=== PATIENT | male | born 1950 | race Caucasian/White ===

== ENCOUNTER 2018-07-29 09:15 | Outpatient (CLI) | payer MEDICARE ==
[~2018-07-29 09:15] MED LIST: Iopamidol 370 76% 100 ML VIAL ONE
--- NOTE | 2018-07-29 11:06 | CT ---
CT HEAD WITH AND WITHOUT CONTRAST: Date: 07/29/18 INDICATION: Essential tremor. No prior comparison. FINDINGS: There is age-appropriate size of the ventricular system. Mild chronic ischemic disease of the cerebra l white matter. There is no acute intracranial hemorrhage, mass effect, or midline shift. No patholog ic intra-axial enhancement. IMPRESSION: 1. Mild chronic ischemic disease of cerebral white matter. 2. No acute intracranial hemorrhage or mass effect. POS: ROLAND
== END 2018-07-29 09:16 | disposition home or self-care (01) ==
LOC: SCSCT 09:15
PROVIDERS: ATTEND Nurse Practitioner Acute Care
DX: G25.0 Essential tremor (principal); R90.82 White matter disease, unspecified; I67.82 Cerebral ischemia
CPT/HCPCS: 70470

== ENCOUNTER 2019-01-12 14:05 | Outpatient (CLI) | payer MEDICARE ==
--- NOTE | 2019-01-12 15:08 | RAD ---
LEFT SHOULDER 3 VIEWS: Date: 01/12/19 HISTORY: Left shoulder pain. FINDINGS/IMPRESSION: There are degenerative changes in the acromioclavicular joint. No fracture, dislocation, or bony dest ruction is seen. POS: C
== END 2019-01-12 14:06 | disposition home or self-care (01) ==
LOC: SCSRAD 14:05
PROVIDERS: ATTEND Family Medicine
DX: S46.012D Strain of muscle(s) and tendon(s) of the rotator cuff of left shoulder, subsequent encounter (principal); M19.012 Primary osteoarthritis, left shoulder

== ENCOUNTER 2019-06-13 08:01 | Outpatient (CLI) | payer MEDICARE ==
[2019-06-13] MEDS ORDERED: Iopamidol 300 61% 30 ML VIAL ONE (08:05)
[2019-06-13] MEDS ORDERED: EPINEPHrine 1 MG/ML AMP ONE (08:05)
[2019-06-13] MEDS ORDERED: Lidocaine 1% PF 5 ML VIAL ONE (08:05)
--- NOTE | 2019-06-13 11:03 | CT ---
CT Upper Ext Lt W Con History: M 24.812 internal derangement of left shoulder Comparison: Arthrogram same day. Shoulder radiograph January 12, 2019 Findings: Biceps tendon: Intra-articular biceps tendon is intact without rupture. Labrum: Free edge blunting of the superior labrum extending into the posterior superior labrum. Cartilage: No full-thickness cartilage defect. Rotator cuff: No full-thickness perforation. Footprint appears to be intact. No significant articular surface partial tearing. Bones: Moderate degenerative disease of the acromioclavicular joint. Normal glenoid version. 3 mm nod ule superior segment left lower lobe. Muscles: No significant atrophy. Incomplete evaluation of cardiac device. Impression: 1. No full-thickness rotator cuff tear. No significant undersurface partial tearing. 2. Mild blunting and free edge fraying of the superior labrum extending to the posterior superior lab rum without displaced labral tissue. 3. 3 mm pulmonary nodule superior segment left lower lobe. 4. Normal glenoid version. 5. Intact intra-articular biceps tendon.
--- NOTE | 2019-06-13 11:06 | RAD ---
XR Shoulder Lt Arthrogram History: Internal derangement of left shoulder M 24.812 Comparison: Shoulder radiograph January 12, 2019 Findings: Patient was brought to the fluoroscopy suite. All questions were answered. Informed consent was obtained. Timeout performed. The patient's left shoulder was prepped and draped in normal sterile fashion. 3 mL of lidocaine was i nstilled into the superficial and deep soft tissues. Using fluoroscopic guidance and a 22-gauge needle, a total of 10 mL contrast was instilled into the h umeral joint. The patient tolerated the procedure well without complication. Impression: Technically successful fluoroscopic guided left shoulder arthrogram for CT. Fluoroscopy time: 0.2 minutes
== END 2019-06-13 08:02 | disposition home or self-care (01) ==
LOC: RAD 08:01
PROVIDERS: ATTEND Pediatrics Sports Medicine
DX: M24.812 Other specific joint derangements of left shoulder, not elsewhere classified (principal); R91.1 Solitary pulmonary nodule
CPT/HCPCS: 23350; J0171; J2001; Q9967

== ENCOUNTER 2019-06-21 12:35 | Outpatient (CLI) | payer MEDICARE ==
--- NOTE | 2019-06-21 14:51 | CT ---
CT CHEST NONCONTRAST: Date: 06/21/19 HISTORY: Lung nodule. Abnormal CT. FINDINGS: Lungs are well inflated. The 0.3 cm ground-glass subpleural nodule in the superior segment of left lo wer lobe is again demonstrated. Additional tiny nonspecific smaller nodules are also present bilatera lly. No aggressive lesions are apparent. No pleural fluid or lobar consolidation. Airway is patent. Lack of contrast limits evaluation of the soft tissues. Left subclavian cardiac electronic device in place. No bulky mediastinal adenopathy. Degenerative changes thoracic spine. IMPRESSION: The 3 mm subpleural ground-glass nodule superior segment left lower lobe is stable. Suggest routine c hest screening. Specific follow-up regarding this nodule is not required. POS: TPC
== END 2019-06-21 12:36 | disposition home or self-care (01) ==
LOC: SCSCT 12:35
PROVIDERS: ATTEND Family Medicine
DX: R91.1 Solitary pulmonary nodule (principal)
CPT/HCPCS: 71250

== ENCOUNTER 2019-07-19 15:27 | Inpatient (IN) | payer MEDICARE ==
--- NOTE | 2019-07-19 15:45 | CT ---
EXAM: Brain CT scan Without contrast: HISTORY: Stroke alert, bilateral leg weakness altered mental status COMPARISON: 07/29/2018 FINDINGS: Atrophy and chronic white matter ischemic change. No focal mass or midline shift. No intra or extra-axial hemorrhage. The visualized sinuses and mastoids are clear of acute process. IMPRESSION: No mass or bleed or other significant acute intracranial process. Findings discussed with Dr Verdugo at 3:40 PM CODE CR
[2019-07-19 15:47] LABS: #Basophils 0.1 thou/uL (0.0-0.2); #Eosinphils 0.6 thou/uL (0.0-0.7); #Lymphocytes 1.3 thou/uL (1.20-3.40); #Monocytes 0.7 thou/uL (0.11-0.59); #Neutrophils 7.2 thou/uL (1.40-6.50); %Basophils 0.7 % (0.0-1.0); %Lymphocytes 13.2 % (21.0-51.0); %Monocytes 6.8 % (0.0-10.0); %Neutrophils 73.4 % (42.0-75.0); Hemoglobin 16.3 g/dL (14.0-18.0); Mean Corpuscular HGB CONC 34.3 g/dL (32.0-36.0); Mean Corpuscular Hemoglobin 33.3 pg (27.0-31.0); Mean Platelet Volume 8.3 fL (7.4-10.4); Platelet Count 217 thou/uL (130-400); RBC Distribution Width 11.7 % (11.5-14.5); Red Blood Cell (RBC) Count 4.91 mill/uL (4.70-6.10); White Blood Cell (WBC) Count 9.8 thou/uL (4.8-10.8)
[2019-07-19 15:52] LABS: PTT 32.8 SEC (22.9-36.1)
[2019-07-19 15:54] LABS: INR-International Normal Ratio 1.3
[2019-07-19 16:01] LABS: ALT (SGPT) 18 U/L (8-55); AST (SGOT) 18 U/L (5-34); Albumin 4.3 g/dL (3.4-4.8); Alkaline Phosphatase 64 U/L (40-110); Anion Gap 16 mmol/L (10-20); BUN (Urea Nitrogen) 18 mg/dL (8.4-25.7); Bilirubin, Total 0.5 mg/dL (0.2-1.2); Calc. Creatinine Clearance 0 mL/min (70-130); Calcium 9.7 mg/dL (7.8-10.44); Carbon Dioxide 20 mmol/L (23-31); Chloride 107 mmol/L (98-107); Estimated GFR-MDRD 57; Globulin 2.4 g/dL (2.4-3.5); Glucose 163 mg/dL (80-115); Potassium 4.3 mmol/L (3.5-5.1); Protein, Total 6.7 g/dL (5.8-8.1); Sodium 139 mmol/L (136-145)
--- NOTE | 2019-07-19 16:19 | RAD ---
SINGLE VIEW OF THE CHEST: 07/19/19 COMPARISON: 01/01/06 HISTORY: Possible CVA with altered mental status. FINDINGS: Single view of the chest shows normal sized cardiomediastinal silhouette. There is a pacemaker that i s unchanged in position. A cardiac monitoring device projects over the left chest wall. There is no e vidence of consolidation, mass, or pleural effusion. Degenerative changes are seen in the spine. IMPRESSION: No evidence of acute cardiopulmonary disease. POS: TPC
[2019-07-19] MEDS ORDERED: Diltiazem HCl 125 MG, Admixture Fee 1 EACH in Sodium Chloride 0.9% 100 ML IVPB SCH (17:45)
[2019-07-19 18:16] LABS: Bacteria/HPF None Seen HPF (None Seen); Bilirubin Negative (Negative); Blood, Urine Negative (Negative); Clarity Clear (Clear); Glucose, Urine (Dipstick) Normal (Negative); Leukocyte Negative Leu/uL (Negative); Nitrite Negative (Negative); Protein, Urine (Dipstick) 30 mg/dL (Neg-Trace); RBC/HPF 0-3 HPF (0-3); Squamous Epithelial 0-3 HPF (0-3); WBC/HPF 0-3 HPF (0-3)
[2019-07-19 18:28] LABS: Mucous/LPF 2+ LPF (<2+)
[2019-07-19 18:29] LABS: Calcium Oxalate Crystals 2+ HPF (None Seen)
[2019-07-19 18:52] VITALS: BMI 26.8
[2019-07-19] MEDS ORDERED: Ondansetron PF 4 MG/2 ML Vial IVP PRN (18:52)
[2019-07-19] MEDS ORDERED: Ondansetron ODT 4 MG TAB SL PRN (18:52)
[2019-07-19 19:25] LABS: Troponin I 0.017 ng/mL (< 0.028)
[2019-07-19] MEDS ORDERED: Aspirin 325 MG TAB PO SCH (19:30)
[2019-07-19] MEDS ORDERED: Metoprolol Tartrate 25 MG TAB PO SCH (19:30)
[2019-07-19] MEDS ORDERED: Acetaminophen 325 MG TAB PO PRN (19:40)
[2019-07-19] MEDS ORDERED: HumaLOG 300 UNITS/3 ML VIAL SC PRN (19:41)
[2019-07-19] MEDS ORDERED: Dextrose 5% in Water 1,000 ML IV PRN (19:41)
[2019-07-19] MEDS ORDERED: Dextrose 50% Abboject 50 ML SYRINGE SLOW IVP PRN (19:41)
[2019-07-19 20:01] LABS: Digoxin 1.18 ng/mL (0.8-2.0)
[2019-07-19] MEDS: Apixaban 5 MG TAB PO SCH (20:27)
[2019-07-19] MEDS ORDERED: Topiramate 25 MG TAB PO SCH (21:00)
[2019-07-19 22:30] LABS: Troponin I 0.011 ng/mL (< 0.028)
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
--- NOTE | 2019-07-20 08:15 | ULT ---
CAROTID ARTERIAL DOPPLER ULTRASOUND: DATE: 07/20/2019. COMPARISON: None. HISTORY: Altered mental status, change in ischemic attack. TECHNIQUE: Multiplanar grayscale sonographic imaging of the arterial structures of the neck obtained with color flow and spectral analysis. FINDINGS: There is scattered atherosclerotic plaque within the distal left CCA as well as the bilateral proxima l ICA and ECA. Antegrade blood flow and normal arterial waveforms are documented within the carotid and the vertebra l system bilaterally. VESSEL PEAK SYSTOLIC VELOCITY (CM/S) Right CCA 109 Right ICA 72 Right ECA 90 Left CCA 101 Left ICA 72 Left ECA 58 IC/CC ratio is 0.8 the right and 0.7 on the left. IMPRESSION: No hemodynamically significant stenosis on the basis of sonographic velocity criteria. Transcribed Date/Time: 07/20/2019 8:27 AM
[2019-07-20] MEDS ORDERED: Escitalopram Oxalate 10 mg Tablet PO SCH (09:00)
[2019-07-20] MEDS ORDERED: Alogliptin 25 MG TAB PO SCH (09:00)
[2019-07-20] MEDS ORDERED: Digoxin 0.25 MG TAB PO SCH (09:00)
[2019-07-20] MEDS: metFORMIN 500 MG TAB PO SCH ×2 (09:08→16:44)
[2019-07-20] MEDS: Apixaban 5 MG TAB PO SCH (09:09)
--- NOTE | 2019-07-20 10:02 | PDOC.HOSPP ---
- Subjective Subjective: Feels well. Didn't get much sleep. - Objective Vital Signs & Weight: Vital Signs (12 hours) Temp Pulse Resp BP Pulse Ox 07/20/19 09:09 76 07/20/19 09:04 97.9 F 88 14 132/73 98 07/20/19 07:10 95 07/20/19 04:00 97.8 F 74 18 106/70 96 07/20/19 00:00 98.1 F 84 18 112/66 97 Weight Weight 181 lb 6.4 oz I&O: 07/19/19 07/20/19 07/21/19 06:59 06:59 06:59 Intake Total 300 Balance 300 Result Diagrams: 07/19/19 15:35 07/19/19 15:38 Additional Labs: Accuchecks 07/20/19 07/19/19 05:56 20:29 POC Glucose 105 109 Hospitalist ROS - Medication Medications: Active Medications Generic Name Dose Route Start Last Admin Trade Name Freq PRN Reason Stop Dose Admin Acetaminophen 650 mg 07/19/19 19:40 07/19/19 20:41 Tylenol PO 650 mg Q4H PRN Administration Headache/Fever/Mild Pain (1-3) Alogliptin Benzoate 25 mg 07/20/19 09:00 07/20/19 09:08 Alogliptin PO 25 mg DAILY RACHAEL Administration Apixaban 5 mg 07/19/19 21:00 07/20/19 09:09 Eliquis PO 5 mg BID RACHAEL Administration Escitalopram Oxalate 10 mg 07/20/19 09:00 07/20/19 09:09 Lexapro PO 10 mg DAILY RACHAEL Administration Metformin HCl 1,000 mg 07/20/19 08:00 07/20/19 09:08 Glucophage PO 1,000 mg BID-WM RACHAEL Administration Topiramate 25 mg 07/19/19 21:00 07/19/19 20:26 Topamax PO 25 mg HS RACHAEL Administration - Exam Heart: no murmur, no gallops, no rubs, normal peripheral pulses, irregular Respiratory: CTAB, no wheezes, no rales, no ronchi, normal chest expansion, no tachypnea, normal percussion Gastrointestinal: soft, non-tender, non-distended, normal bowel sounds, no palpable masses, no hepatomegaly, no splenomegaly, no bruit Skin: normal turgor, no lesions, no rashes Neurological: no focal deficits Musculoskeletal: normal tone Psychiatric: normal affect, normal behavior, A&O x 3 Hosp A/P (1) Encephalopathy Code(s): G93.40 - ENCEPHALOPATHY, UNSPECIFIED Status: Acute (2) Atrial fibrillation with rapid ventricular response Code(s): I48.91 - UNSPECIFIED ATRIAL FIBRILLATION Status: Acute (3) History of seizure Code(s): Z87.898 - PERSONAL HISTORY OF OTHER SPECIFIED CONDITIONS Status: Acute (4) Benign essential tremor Code(s): G25.0 - ESSENTIAL TREMOR Status: Acute (5) Diabetes mellitus Code(s): E11.9 - TYPE 2 DIABETES MELLITUS WITHOUT COMPLICATIONS Status: Acute (6) History of depression Code(s): Z86.59 - PERSONAL HISTORY OF OTHER MENTAL AND BEHAVIORAL DISORDERS Status: Acute - Plan Looks good. He thinks the encephalopathy may have been purely related to the stress of the event. HR is controlled. Saw Dr. Worley this morning. PPM interrogation pending. MACIEL otherwise negative. Ambulate as tolerated.
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
[2019-07-20 15:16] VITALS: BP 113/85; TEMP 98
--- NOTE | 2019-07-20 22:11 | CON ---
DATE OF CONSULTATION: 07/20/2019 CONSULT PHYSICIAN: Hospitalist Service. HISTORY OF PRESENT ILLNESS: Mr. Jenkins has been a patient in the neuro clinic for treatment of tremors. He was at his workforce planner's office having his cat put down. Apparently, the procedure did not go well. When he became emotionally distraught, he went into somewhat of a catatonic state, but was able to respond to his daughter and the left the veterinary clinic on his own. While sitting in the car, he told his daughter that he thought he ought to come to the hospital. They came around and had him admitted. He had a CT of the brain done, which showed some small vessel changes. No acute changes were noted. Carotid ultrasound was cleared. His lab work was all unremarkable. His vital signs have been stable and he is afebrile. He has a pacemaker in place, so MRI was not done. He is anticoagulated with Eliquis. On exam at this point, he is alert and appropriate. His speech is fluent and clear. He has no focal deficits. He has some mild postural tremor. I think that he had an emotional breakdown with a bit of a catatonic state. He has done this in the past under stress. I do not see any need for change in medications. Job ID: [id number]
[2019-07-21] MEDS ORDERED: Bupropion 150 MG XL TAB PO SCH (09:00)
[2019-07-21] MEDS ORDERED: Alogliptin 25 MG TAB PO SCH (09:00)
[2019-07-21] MEDS ORDERED: Non-Formulary Item 1 EACH (Bupropion Hcl [Bupropion Hcl Xl] 300 MG) PO SCH (09:00)
[2019-07-21] MEDS ORDERED: Primidone 250 MG TAB PO SCH (09:00)
[2019-07-21] MEDS ORDERED: Digoxin 0.25 MG TAB PO SCH (09:00)
--- NOTE | 2019-07-21 13:50 | DIS ---
DATE OF ADMISSION: 07/19/2019 DATE OF DISCHARGE: 07/20/2019 DISCHARGE DIAGNOSES: 1. Acute encephalopathy. 2. Atrial fibrillation with rapid ventricular response. 3. History of isolated seizure. 4. Diabetes mellitus. 5. Anorexia, likely secondary to medication. 6. Hyperlipidemia. 7. History of anxiety/depression. 8. History of benign tremor. HISTORY OF PRESENT ILLNESS: This patient is a 68-year-old male who was at the sebd teacher with his daughter who had to have her pet cat put down. 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 The patient was in the waiting area and became a bit less responsive, but appeared to recover. They got in the car to drive home and he became even less responsive. They subsequently brought him directly to the emergency department. A code stroke was called and the patient was being taken to the CT scanner when he finally came back to himself. The patient was never unconscious during this time. He only remembered being in the veterinary office and being here on his way to the CT scan. He had a negative CT, negative chest x-ray and his labs were otherwise unremarkable. He had a blood sugar of 163, no evidence of hypoglycemia. Troponins were negative. HOSPITAL COURSE: The patient was placed in observation for altered mental status. His prolactin level returned normal. TSH was normal. He was maintained on telemetry, which showed persistent atrial fibrillation. He had a pacemaker interrogation, which showed no significant functioning. He was seen in consultation by his lead software tester, Dr. Worley. He did not feel the patient had arrhythmia related challenges. He was also seen in consultation by Dr. Lorenz who felt the patient had an emotional breakdown with a bit of a catatonic state and we all were comfortable with the patient being discharged to home. He did have carotid Dopplers performed, which showed no hemodynamically significant stenosis. PHYSICAL EXAMINATION: VITAL SIGNS: On the day of admission, temperature was 98.0, pulse 93, respirations 12, O2 saturations 99% on room air, BP is 113/85. GENERAL APPEARANCE: Age-appropriate male in no distress. Awake, alert, oriented, pleasant, and cooperative. HEART: Irregular without murmurs. LUNGS: Clear to auscultation bilaterally. ABDOMEN: Soft, nontender, and nondistended. EXTREMITIES: No cyanosis, clubbing, or edema. DISPOSITION: The patient is discharged home. ACTIVITY: As tolerated. DIET: Diabetic heart healthy diet. DISCHARGE MEDICATIONS: He will continue his usual home medications includin. Metformin. 2. Lisinopril. 3. Insulin. 4. Gabapentin. 5. Topiramate. 6. Simvastatin. 7. Primidone. 8. Sitagliptin. 9. Digoxin. 10. Bupropion. 11. Eliquis. 12. Lexapro. The patient was counseled that his anorexia over the past 6 months with 20 pounds weight loss may be related to the topiramate. FOLLOWUP: He is encouraged to follow up with Neurology as an outpatient to consider alternative medications. He is to follow up with Dr. Patric Tobin in 7 days and he can return to the hospital at any time he feels the need to do so. Job ID: [id number]
== END 2019-07-20 17:36 | disposition home or self-care (01) | DRG 92 ==
LOC: ERS 15:27 → 2SE 18:39
PROVIDERS: ADMIT Internal Medicine; ATTEND Internal Medicine
DX: G25.0 Essential tremor (principal); G93.49 Other encephalopathy; E11.9 Type 2 diabetes mellitus without complications; E78.00 Pure hypercholesterolemia, unspecified; I10 Essential (primary) hypertension; I48.2 Chronic atrial fibrillation; E78.5 Hyperlipidemia, unspecified; F41.9 Anxiety disorder, unspecified; G25.2 Other specified forms of tremor; R63.0 Anorexia; G40.909 Epilepsy, unspecified, not intractable, without status epilepticus; Z79.01 Long term (current) use of anticoagulants; Z95.0 Presence of cardiac pacemaker; Z88.2 Allergy status to sulfonamides
CPT/HCPCS: 36415; 36416; 70450; 71045; 80053; 80162; 81003; 81015; 82550; 84146; 84443; 84484; 85025; 85610; 85730; 87086; 93005; 93880; J3490

== ENCOUNTER 2020-08-15 08:12 | Outpatient (CLI) | payer MEDICARE ==
--- NOTE | 2020-08-15 09:18 | CT ---
CT chest noncontrast HISTORY: Lung nodule. Follow-up. COMPARISON: 06/21/2019. FINDINGS: Lungs are well-inflated. The 0.3 cm noncalcified nodule near the pleura at the posterior as pect of the left lower lobe, likely in the superior segment, is unchanged in appearance. Now better demonstrated at the right posterior medial lung base is a subpleural 0.6 x 0.5 cm nodule that is also stable compared to the previous exam. No pleural fluid or pneumothorax. No consolidation. Calcified granulomata are consistent with healed granulomatous disease. Left subclavian cardiac elect ronic device is in place. There is calcification in the coronary arteries. Lack of contrast limits evaluation of the soft tissues. No mediastinal adenopathy evident. IMPRESSION : Stable CT appearance of small bilateral subpleural nodules. No new abnormalities. Atherosclerosis.
== END 2020-08-15 08:13 | disposition home or self-care (01) ==
LOC: BICCT 08:12
PROVIDERS: ATTEND Internal Medicine
DX: R91.8 Other nonspecific abnormal finding of lung field (principal); I70.90 Unspecified atherosclerosis
CPT/HCPCS: 71250

== ENCOUNTER 2024-04-20 09:04 | Emergency (ER) | payer MEDICARE ==
[2024-04-20] MEDS ORDERED: Lorazepam 2 MG/ML VIAL ONE (09:13)
[2024-04-20 10:02] LABS: ALT (SGPT) 17 U/L (8-55); AST (SGOT) 18 U/L (5-34); Albumin 3.3 g/dL (3.4-4.8); Alkaline Phosphatase 92 U/L (40-110); Anion Gap 15 mmol/L (10-20); BUN (Urea Nitrogen) 10 mg/dL (8.4-25.7); Bilirubin, Total 0.7 mg/dL (0.2-1.2); Calc. Creatinine Clearance 0 mL/min (70-130); Calcium 8.4 mg/dL (7.8-10.44); Carbon Dioxide 18 mmol/L (23-31); Chloride 112 mmol/L (98-107); Estimated GFR 91; Globulin 2.9 g/dL (2.4-3.5); Glucose 149 mg/dL (83-110); Lipase 53 U/L (8-78); Magnesium 1.6 mg/dL (1.6-2.6); Potassium 3.5 mmol/L (3.5-5.1); Protein, Total 6.2 g/dL (5.8-8.1); Sodium 141 mmol/L (136-145)
[2024-04-20 10:10] LABS: Troponin I 0.018 ng/mL (< 0.028)
[2024-04-20 10:11] LABS: #Basophils 0.05 10x3/uL (0.0-0.2); %Basophils 0.8 % (0.0-1.0); %Eosinophils 7.2 % (0.0-10.0); %Lymphocytes 23.7 % (21.0-51.0); %Monocytes 8.4 % (0.0-10.0); Hematocrit 42.1 % (42.0-52.0); Hemoglobin 14.4 g/dL (14.0-18.0); Mean Corpuscular HGB CONC 34.2 g/dL (32.0-36.0); Mean Corpuscular Hemoglobin 31.1 pg (27.0-31.0); Mean Corpuscular Volume 90.9 fL (78.0-98.0); Mean Platelet Volume 10.6 fL (7.4-10.4); Platelet Count 189 10x3/uL (130-400); RBC Distribution Width 13.3 % (11.5-14.5); Red Blood Cell (RBC) Count 4.63 mill/uL (4.70-6.10)
[2024-04-20 10:24] LABS: INR-International Normal Ratio 1.1; Prothrombin Time 13.7 sec (12.0-14.7)
[2024-04-20 10:25] LABS: PTT 28.1 sec (22.9-36.1)
[2024-04-20 10:32] LABS: Bacteria/HPF None Seen HPF (None Seen); Bilirubin Negative (Negative); Blood, Urine Negative (Negative); CAUTI Indications for Culture Alt mental st,lethar; Clarity Clear (Clear); Glucose, Urine (Dipstick) >=1000 mg/dL (Negative); Ketone, Urine Negative (Negative); Leukocyte Negative Leu/uL (Negative); Nitrite Negative (Negative); Protein, Urine (Dipstick) Negative (Neg-Trace); RBC/HPF 0-3 HPF (0-3); Specific Gravity, Urine 1.014 (1.002-1.036); Squamous Epithelial None Seen HPF (0-3); Urobilinogen Normal mg/dL (Less than 2); WBC/HPF 0-3 HPF (0-3); pH, Urine 6.5 (5.0-9.0)
[2024-04-20 11:08] LABS: Urine Culture Reflex No No
== END 2024-04-20 13:08 | disposition home or self-care (01) ==
LOC: ERS 09:04
DX: F41.8 Other specified anxiety disorders (principal); F43.11 Post-traumatic stress disorder, acute; F43.20 Adjustment disorder, unspecified; E11.9 Type 2 diabetes mellitus without complications; I48.91 Unspecified atrial fibrillation; F03.90 Unspecified dementia, unspecified severity, without behavioral disturbance, psychotic disturbance, mood disturbance, and anxiety; Z95.0 Presence of cardiac pacemaker; Z79.01 Long term (current) use of anticoagulants; Z79.84 Long term (current) use of oral hypoglycemic drugs; Z79.899 Other long term (current) drug therapy; Z55.6 Problems related to health literacy; Z75.3 Unavailability and inaccessibility of health-care facilities
CPT/HCPCS: 70450; 71045; 81001; 82140; 83690; 83735; 84484; 85610; 85730; 93005; 96361; 96374; 99285; J2060; 36415; 80053; 84443; 85025

== ENCOUNTER 2024-11-02 08:34 | Outpatient (CLI) | payer MEDICARE | END 2024-11-02 08:35 | disposition home or self-care (01) | LOC: NM 08:34 | PROVIDERS: ATTEND Psychiatry & Neurology Neurology | DX: G20.C Parkinsonism, unspecified (principal) | CPT/HCPCS: 78803; A9584 ×2 ==